=== PATIENT | female | born 1960 | race Caucasian/White ===

== ENCOUNTER → 2016-10-24 | Outpatient (CLI) | payer BC ==
[~2016-10-24] MED LIST: ASPIR-LOW81 MG PO; MIRALAX17 GM PO; NAPROXEN250 MG PO; NORCO 5-325 TA1 EACH PO; PRINIVIL20 MG PO; SIMVASTATIN40 MG PO; ULTRAM50 MG PO
[2016-10-24 09:46] LABS: RED BLOOD COUNT 4.47 M/UL (4.00-5.10); WHITE BLOOD COUNT 4.7 K/UL (4.5-11.0)
== END ==
LOC: OPSV2 08:00
PROVIDERS: Obstetrics & Gynecology
DX: Z01.812 Encounter for preprocedural laboratory examination (principal); N81.3 Complete uterovaginal prolapse; I10 Essential (primary) hypertension
CPT/HCPCS: 36415; 80048; 80061; 81001; 85025

== ENCOUNTER 2016-11-01 06:04 | Day surgery (SDC) | payer BC ==
[~2016-11-01] VITALS: Ht 170.2 cm; Wt 77.1 kg
[2016-11-01] MEDS ORDERED: PRINIVIL20 MG PO (06:58)
[2016-11-01] MEDS ORDERED: ULTRAM50 MG PO (06:59)
[2016-11-01] MEDS ORDERED: SIMVASTATIN40 MG PO (06:59)
[2016-11-01] MEDS ORDERED: ASPIR-LOW81 MG PO (07:00)
[2016-11-02 06:14] LABS: HEMOGLOBIN 10.7 gm/dl (12.3-15.3)
[2016-11-02] MEDS ORDERED: MIRALAX17 GM PO (12:23)
[2016-11-02] MEDS ORDERED: NORCO 5-325 TA1 EACH PO (12:25)
[2016-11-02] MEDS ORDERED: NAPROXEN250 MG PO (12:28)
== END 2016-11-02 13:33 | disposition home or self-care (01) ==
LOC: OR 06:04 → M/S 11:24 → OR 11-02 13:33
PROVIDERS: Obstetrics & Gynecology; Physician Assistant
PROC: 0TSD0ZZ Reposition Urethra, Open Approach (ICD-10-PCS; 2016-11-01)
PROC: 0WQN0ZZ Repair Female Perineum, Open Approach (ICD-10-PCS; 2016-11-01)
PROC: 0JQC0ZZ Repair Pelvic Region Subcutaneous Tissue and Fascia, Open Approach (ICD-10-PCS; 2016-11-01)
PROC: 0JQC0ZZ Repair Pelvic Region Subcutaneous Tissue and Fascia, Open Approach (ICD-10-PCS; 2016-11-01)
PROC: 0UT97ZZ Resection of Uterus, Via Natural or Artificial Opening (ICD-10-PCS; principal; 2016-11-01 07:30)
PROC: 0UTC7ZZ Resection of Cervix, Via Natural or Artificial Opening (ICD-10-PCS; 2016-11-01 07:30)
PROC: 0USG0ZZ Reposition Vagina, Open Approach (ICD-10-PCS; 2016-11-01 07:30)
DX: N81.3 Complete uterovaginal prolapse (principal); N81.82 Incompetence or weakening of pubocervical tissue; N36.41 Hypermobility of urethra; M85.80 Other specified disorders of bone density and structure, unspecified site; M19.90 Unspecified osteoarthritis, unspecified site; I10 Essential (primary) hypertension; Z86.718 Personal history of other venous thrombosis and embolism; Z79.82 Long term (current) use of aspirin; Z79.899 Other long term (current) drug therapy
CPT/HCPCS: 36415; 80048; 85014; 85018; C1769; C1771; J0690; J1100; J1885; J2250; J2270; J2405; J2550; J2710; J2795; J3010; J7120